=== PATIENT | male | born 1960 | race Caucasian/White ===

== ENCOUNTER 2020-09-25 11:37 | Emergency (ER) | payer MEDICARE, MEDICAID ==
[~2020-09-25] VITALS: Ht 172.7 cm; Wt 70.5 kg
[2020-09-25 11:41] VITALS: BP 157/91; Ht 172.7 cm; Wt 70.5 kg
[2020-09-25] MEDS ORDERED: KLONOPIN1 MG PO (11:43)
[2020-09-25] MEDS ORDERED: PRAVACHOL40 MG PO (11:43)
[2020-09-25] MEDS ORDERED: OMEPRAZOLE20 M1 PO (11:44)
[2020-09-25] MEDS ORDERED: BACLOFEN20 M1 PO (11:44)
[2020-09-25] MEDS ORDERED: COZAAR50 MG PO ×2 (11:44→11:46)
[2020-09-25] MEDS ORDERED: NORTRIPTYLINE H50 MG PO (11:45)
[2020-09-25] MEDS ORDERED: TENORMIN50 MG PO (11:45)
[2020-09-25] MEDS ORDERED: VIAGRA100 MG PO (11:45)
[2020-09-25] MEDS ORDERED: INDOCIN25 MG PO (11:46)
[2020-09-25] MEDS ORDERED: TENORMIN100 MG PO (11:47)
[2020-09-25 12:54] LABS: BASOPHILS 0.6 % (0-2); EOSINOPHILS 0.4 % (0-7); HEMATOCRIT 41.2 % (42.0-54.0); HEMOGLOBIN 13.4 g/dL (13.5-17.5); IMMATURE GRANULOCYTES 0.1 % (0-5); LYMPHOCYTE ABS# 1.06 10x3/uL (1.32-3.57); LYMPHOCYTES 15.1 % (15-50); MCH 28.7 pg (26.0-34.0); MCHC 32.5 g/dL (31.0-37.0); MCV 88.2 fL (80.0-100.0); MEAN PLATELET VOLUME 8.8 fL (7.4-10.4); MONOCYTES 6.1 % (2-11); NEUTROPHIL ABS# 5.43 10x3/uL (1.78-5.38); NEUTROPHILS 77.7 % (40-80); PLATELET COUNT 248 10x3/uL (130-400); RBC 4.67 10x6/uL (4.20-6.10); RDW 16.3 % (11.5-14.5)
[2020-09-25 13:02] LABS: CALC OSMOLALITY 278 mosm/kg (275-300); CALCIUM 8.9 mg/dL (8.5-10.1); CARBON DIOXIDE 22.9 mmol/L (21.0-32.0); CHLORIDE - SERUM 105 mmol/L (98-107); GLUCOSE 80 mg/dL (74-106); POTASSIUM - SERUM 3.7 mmol/L (3.5-5.1); SODIUM 140 mmol/L (136-145); UREA NITROGEN 15 mg/dL (7-18); eGFR NON AFRICAN AMERICAN 81 mL/min (90-120)
[2020-09-25 13:03] LABS: APTT 33.5 SECONDS (22.8-39.4); INR 1.07 (0.85-1.17); PROTIME 12.8 SECONDS (11.6-15.0)
[2020-09-25 13:17] LABS: ALBUMIN 3.1 g/dL (3.4-5.0); ALKALINE PHOSPHATASE 97 U/L (30-120); ALT (SGPT) 40 U/L (10-68); BILIRUBIN - TOTAL 0.41 mg/dL (0.2-1.3); CKMB 15.2 U/L (0.0-3.6); CREATINE KINASE 390 UL (21-232); MAGNESIUM - SERUM 1.7 mg/dL (1.8-2.4); PROTEIN - SERUM 6.3 g/dL (6.4-8.2)
[2020-09-25 13:18] LABS: TROPONIN-I < 0.017 ng/mL (0.000-0.060)
[2020-09-25 13:43] LABS: BILIRUBIN 1+ (NEGATIVE); KETONE LARGE mg/dL (NEGATIVE); NITRITE NEGATIVE (NEGATIVE); UDS - AMPHET NEGATIVE QUAL (NEGATIVE); UDS - BARB NEGATIVE QUAL (NEGATIVE); UDS - BENZO POSITIVE QUAL (NEGATIVE); UDS - COCAINE NEGATIVE QUAL (NEGATIVE); UDS - OPIATE NEGATIVE QUAL (NEGATIVE); UDS - PCP NEGATIVE QUAL (NEGATIVE); UDS - THC POSITIVE QUAL (NEGATIVE); UROBILINOGEN NORMAL mg/dL (< 2)
[2020-09-25 13:44] LABS: SQUAMOUS EPITHELIAL 0-5 HPF (0-4); WHITE CELLS - URINE 0-5 HPF (0-1)
[2020-09-25] MEDS ORDERED: CYCLOBENZAPRINE10 MG PO (14:19)
[2020-09-25] MEDS ORDERED: IBUPROFEN800 MG PO (14:19)
[2020-09-25] MEDS ORDERED: ACETAMINOPHEN500 M1 PO (14:19)
== END 2020-09-25 19:59 | disposition home or self-care (01) ==
LOC: D.ER 11:37
PROVIDERS: Family Medicine
DX: M54.9 Dorsalgia, unspecified (principal); R62.7 Adult failure to thrive; R53.83 Other fatigue; Z59.0 Homelessness; M62.82 Rhabdomyolysis; R53.1 Weakness; T73.0XXA Starvation, initial encounter; R53.81 Other malaise; I10 Essential (primary) hypertension; K21.9 Gastro-esophageal reflux disease without esophagitis; Z72.0 Tobacco use

== ENCOUNTER 2020-12-04 13:06 | Inpatient (IN) | payer MEDICARE ==
[2020-12-04] VITALS (7 sets, daily range): BP systolic 114–136; BP diastolic 56–76
[~2020-12-04] VITALS: Ht 172.7 cm; Wt 69.4 kg
[~2020-12-04 13:06] MED LIST: ACETAMINOPHEN500 M1 PO; BACLOFEN20 M1 PO; COZAAR50 MG PO; CYCLOBENZAPRINE10 MG PO; IBUPROFEN800 MG PO; INDOCIN25 MG PO; KLONOPIN1 MG PO; NORTRIPTYLINE H50 MG PO; OMEPRAZOLE20 M1 PO; PRAVACHOL40 MG PO; TENORMIN100 MG PO; TENORMIN50 MG PO; VIAGRA100 MG PO
--- NOTE | 2020-12-04 13:51 | NUR ---
URINE COLLECTED AND TAKEN TO LAB.
--- NOTE | 2020-12-04 13:52 | NUR ---
BLOOD DRAWN AND TAKEN TO LAB.
[2020-12-04 13:57] LABS: EOSINOPHILS 1.4 % (0-7); HEMATOCRIT 35.5 % (42.0-54.0); LYMPHOCYTES 15.5 % (15-50); MCH 30.7 pg (26.0-34.0); MCHC 33.7 g/dL (31.0-37.0); MCV 91.2 fL (80.0-100.0); MEAN PLATELET VOLUME 6.1 fL (7.4-10.4); MONOCYTES 8.9 % (2-11); NEUTROPHILS 73.2 % (40-80); PLATELET COUNT 282 10x3/uL (130-400); RDW 14.5 % (11.5-14.5); WBC 7.6 10x3/uL (4.8-10.8)
[2020-12-04 14:04] LABS: BILIRUBIN NEGATIVE (NEGATIVE); KETONE NEGATIVE mg/dL (< 1+); NITRITE NEGATIVE (NEGATIVE); PH 5.5 (5.0-8.0); UROBILINOGEN NORMAL mg/dL (< 2)
[2020-12-04 14:10] LABS: ANION GAP 9.2 mmol/L (8-16); CALCIUM 8.6 mg/dL (8.5-10.1); CARBON DIOXIDE 31.8 mmol/L (21.0-32.0); CREATININE - SERUM 1.4 mg/dL (0.6-1.3)
[2020-12-04 14:30] LABS: ALBUMIN 3.6 g/dL (3.4-5.0); BILIRUBIN - TOTAL 0.4 mg/dL (0.2-1.3); PROTEIN - SERUM 6.8 g/dL (6.4-8.2)
[2020-12-04 14:40] LABS: TROPONIN-I 0.158 ng/mL (0.000-0.060)
[2020-12-04 15:20] LABS: UDS - AMPHET NEGATIVE QUAL (NEGATIVE); UDS - BARB NEGATIVE QUAL (NEGATIVE); UDS - BENZO NEGATIVE QUAL (NEGATIVE); UDS - COCAINE NEGATIVE QUAL (NEGATIVE); UDS - OPIATE NEGATIVE QUAL (NEGATIVE); UDS - PCP NEGATIVE QUAL (NEGATIVE); UDS - THC POSITIVE QUAL (NEGATIVE)
[2020-12-04] MEDS ORDERED: PRAVASTATIN SOD10 MG PO (17:48)
[2020-12-04] MEDS ORDERED: PROCARDIA XL60 MG PO (17:49)
[2020-12-04] MEDS ORDERED: COREG25 MG PO (17:49)
[2020-12-04] MEDS ORDERED: VOLTAREN75 MG PO (17:50)
[2020-12-04] MEDS ORDERED: BACLOFEN20 M1 PO (17:50)
[2020-12-04] MEDS ORDERED: CYMBALTA60 MG PO (17:51)
[2020-12-04] MEDS ORDERED: NEURONTIN 400400 MG PO (17:51)
[2020-12-04] MEDS ORDERED: OMEPRAZOLE20 M1 PO (17:52)
[2020-12-04] MEDS ORDERED: SENNA LAXATIVE8.6 MG PO (17:54)
[2020-12-04] MEDS ORDERED: COZAAR25 MG PO (17:56)
[2020-12-04] MEDS ORDERED: TRAZODONE HCL100 MG PO (17:59)
--- NOTE | 2020-12-04 18:35 | NUR ---
AWAKE AND EATING SUPPER. PATIENT IS MORE ALERT AT THIS TIME. C/O CHRONIC PAIN BACK PAIN. STATES CURRENT MEDICATION REGIMEN DOES NOT WORK. ENCOURAGED TO SPEAK WITH [facility] ABOUT ALL SYMPTOMS.
[2020-12-04 22:03] LABS: CKMB 3.1 U/L (0.0-3.6); CREATINE KINASE 110 UL (21-232)
[2020-12-04 22:13] LABS: TROPONIN-I 0.189 ng/mL (0.000-0.060)
--- NOTE | 2020-12-04 23:55 | NUR ---
RECEIVED PT TO FLOOR FROM ER VIA STRETCHER. PT C/O WEAKNESS; BACK PAIN; KIDNEY PAIN; CONSTIPATION AND CLAIMS HE WILL PROBABLY BE PARALYZED SOME DAY. TELEMETRY RUNNING SR. GAVE PT A WARM PRUNE JUICE W/SPRITE AND COFFEE. PLACED SCD'S ON PT. VITAL SIGNS STABLE. WILL CONTINUE TO MONITOR.
[2020-12-05] VITALS (7 sets, daily range): BP systolic 116–160; BP diastolic 71–101; Ht 172.7 cm; Wt 69.4 kg
[2020-12-05 03:39] LABS: CKMB 2.7 U/L (0.0-3.6); CREATINE KINASE 91 UL (21-232)
[2020-12-05 03:40] LABS: TROPONIN-I 0.196 ng/mL (0.000-0.060)
[2020-12-05 06:45] LABS: EOSINOPHILS 1.8 % (0-7); HEMATOCRIT 35.6 % (42.0-54.0); LYMPHOCYTES 28.4 % (15-50); MCH 31.2 pg (26.0-34.0); MCHC 33.8 g/dL (31.0-37.0); MCV 92.4 fL (80.0-100.0); MEAN PLATELET VOLUME 6.4 fL (7.4-10.4); MONOCYTES 9.6 % (2-11); NEUTROPHILS 59.2 % (40-80); PLATELET COUNT 300 10x3/uL (130-400); RBC 3.85 10x6/uL (4.20-6.10); RDW 14.6 % (11.5-14.5); WBC 5.9 10x3/uL (4.8-10.8)
[2020-12-05 07:18] LABS: ALBUMIN 3.1 g/dL (3.4-5.0); ALKALINE PHOSPHATASE 80 U/L (30-120); ALT (SGPT) 23 U/L (10-68); BILIRUBIN - TOTAL 0.53 mg/dL (0.2-1.3); CALCIUM 8.5 mg/dL (8.5-10.1); CARBON DIOXIDE 30.4 mmol/L (21.0-32.0); CHLORIDE - SERUM 106 mmol/L (98-107); GLUCOSE 89 mg/dL (74-106); SODIUM 143 mmol/L (136-145)
[2020-12-05 07:21] LABS: CALC OSMOLALITY 285 mosm/kg (275-300); CREATININE - SERUM 0.9 mg/dL (0.6-1.3); POTASSIUM - SERUM 3.5 mmol/L (3.5-5.1); UREA NITROGEN 18 mg/dL (7-18); eGFR NON AFRICAN AMERICAN > 90 mL/min (90-120)
[2020-12-05 07:33] LABS: CKMB 2.5 U/L (0.0-3.6); CREATINE KINASE 90 UL (21-232)
[2020-12-05 07:47] LABS: TROPONIN-I 0.157 ng/mL (0.000-0.060)
--- NOTE | 2020-12-05 11:23 | NUR ---
PHYSICAL THERAPY ATTEMPTED TO WORK WITH PT, GOT HIM TO SIT UP TO THE SIDE OF THE BED, WHILE ATTEMPTING TO GET HIM TO STAND UP PT STATED HIS EXTREMITIES STARTED TO FEEL NUMB AND TINGLING, STATES WHEN HE STANDS IT SENDS ELECTRICAL PAIN DOWN HIS LEGS, PT REPORTS HE HAD BACK SURGERY IN EARLY 2019 AND THEN HAD A REVISION IN MAY OF 2020, PT COULD NOT REMEMBER DOCTORS NAME BUT STATES HE HAD IT DONE AT [facility], FURTHER DISCUSSION WITH PHYSICAL THERAPY PT WOULD BENEFIT FROM CONSULT FOR HIS SPINE AND REHAB FOR STRENGTHENING
--- NOTE | 2020-12-05 19:28 | NUR ---
PATIENT RESTING IN BED WITH NO S/S OF DISTRESS AND DENIES NEEDS AT THIS TIME. BED IN LOWEST POSITION AND CALL LIGHT IN REACH. ENCOURAGED PATIENT TO CALL WITH NEEDS.
--- NOTE | 2020-12-05 21:45 | NUR ---
DUNCAN STACY APRN IN REGARDS TO BP 160/100
--- NOTE | 2020-12-05 22:08 | NUR ---
ADMINISTERED MEDS PER ORDERS. PATIENT RAY WELL. ENCOURAGED TO CALL WITH NEEDS.
[2020-12-06] VITALS: BP 129/61
[2020-12-06 04:00] VITALS: BP 139/91
[2020-12-06 05:43] LABS: BASOPHILS 0.9 % (0-2); EOSINOPHILS 1.9 % (0-7); HEMATOCRIT 37.4 % (42.0-54.0); HEMOGLOBIN 12.4 g/dL (13.5-17.5); LYMPHOCYTES 26.4 % (15-50); MCH 30.5 pg (26.0-34.0); MCHC 33.2 g/dL (31.0-37.0); MCV 91.7 fL (80.0-100.0); MEAN PLATELET VOLUME 6.2 fL (7.4-10.4); MONOCYTES 8.9 % (2-11); NEUTROPHILS 61.9 % (40-80); PLATELET COUNT 315 10x3/uL (130-400); RBC 4.08 10x6/uL (4.20-6.10); RDW 14.3 % (11.5-14.5); WBC 5.5 10x3/uL (4.8-10.8)
[2020-12-06 06:19] LABS: ALBUMIN 2.9 g/dL (3.4-5.0); ALKALINE PHOSPHATASE 92 U/L (30-120); ALT (SGPT) 20 U/L (10-68); BILIRUBIN - TOTAL 0.45 mg/dL (0.2-1.3); CALC OSMOLALITY 280 mosm/kg (275-300); CALCIUM 8.4 mg/dL (8.5-10.1); CARBON DIOXIDE 28.7 mmol/L (21.0-32.0); CHLORIDE - SERUM 107 mmol/L (98-107); CREATININE - SERUM 0.8 mg/dL (0.6-1.3); GLUCOSE 89 mg/dL (74-106); POTASSIUM - SERUM 3.3 mmol/L (3.5-5.1); PROTEIN - SERUM 6.2 g/dL (6.4-8.2); SODIUM 142 mmol/L (136-145); eGFR NON AFRICAN AMERICAN > 90 mL/min (90-120)
[2020-12-06 06:33] LABS: UREA NITROGEN 9 mg/dL (7-18)
[2020-12-06 08:43] VITALS: BP 138/90
[2020-12-06 14:22] VITALS: BP 139/99
[2020-12-06 17:23] VITALS: BP 161/97
--- NOTE | 2020-12-06 18:00 | NUR ---
I have reviewed this patient and I concur with the Shift Assessment completed by the Licensed Practical Nurse today this shift.
--- NOTE | 2020-12-06 19:34 | NUR ---
PATIENT RESTING IN BED WITH NO S/S OF DISTRESS. BED IN LOWEST POSITION AND CALL LIGHT IN REACH. ENCOURAGED PATIENT TO CALL WITH NEEDS.
[2020-12-06 20:00] VITALS: BP 126/77
--- NOTE | 2020-12-06 22:10 | NUR ---
ADMINISTERED MEDS PER ORDERS. PATIENT RAY WELL. ENCOURAGED PATIENT TO CALL WITH NEEDS.
[2020-12-07] VITALS: BP 120/77
[2020-12-07 04:00] VITALS: BP 104/77
[2020-12-07 05:35] LABS: BASOPHILS 0.6 % (0-2); EOSINOPHILS 1.4 % (0-7); HEMATOCRIT 38.1 % (42.0-54.0); LYMPHOCYTES 15.3 % (15-50); MCH 31.2 pg (26.0-34.0); MCV 91.9 fL (80.0-100.0); MEAN PLATELET VOLUME 6.4 fL (7.4-10.4); MONOCYTES 10.1 % (2-11); NEUTROPHILS 72.6 % (40-80); PLATELET COUNT 352 10x3/uL (130-400); RBC 4.15 10x6/uL (4.20-6.10); RDW 14.6 % (11.5-14.5)
[2020-12-07 05:59] LABS: WBC 10.1 10x3/uL (4.8-10.8)
[2020-12-07 06:03] LABS: ALBUMIN 3.1 g/dL (3.4-5.0); ALKALINE PHOSPHATASE 100 U/L (30-120); ALT (SGPT) 18 U/L (10-68); BILIRUBIN - TOTAL 0.36 mg/dL (0.2-1.3); CALC OSMOLALITY 280 mosm/kg (275-300); CALCIUM 8.6 mg/dL (8.5-10.1); CARBON DIOXIDE 27.7 mmol/L (21.0-32.0); CHLORIDE - SERUM 107 mmol/L (98-107); GLUCOSE 88 mg/dL (74-106); PROTEIN - SERUM 6.5 g/dL (6.4-8.2); SODIUM 142 mmol/L (136-145); UREA NITROGEN 11 mg/dL (7-18); eGFR NON AFRICAN AMERICAN 81 mL/min (90-120)
[2020-12-07 09:02] VITALS: BP 111/80
[2020-12-07 13:22] VITALS: BP 112/85; BP 127/97
--- NOTE | 2020-12-07 17:00 | NUR ---
PATIENT IVF STOPPED PER PATIENT REQUEST. STATED THE STATED HE WOULD GIVE HIM ONE MORE NIGHT TO STAY, NOT THAT HE NEEDED TO. PATIENT ALSO REMOVED TELEMETRY. REFUSES TO PUT BACK ON OR RESTART IVF. IV X 2 SL AND INTACT. EXPLAINED I CAN NOT TAKE THEM OUT INCASE OF AN EMERGENCY WHILE HE IS HERE. VERBALIZED UNDERSTANDING. CALLL IGHT WITHIN REACH.
[2020-12-07 18:04] VITALS: BP 143/62
--- NOTE | 2020-12-07 19:45 | NUR ---
RECEIVED BEDSIDE REPORT. PT LAYING IN BED, A&O X4. PIV TO LEFT AC, PATENT AND SL, NO REDNESS OR SWELLING. PT ABLE TO AMBULATE AD DARNELL. EDUCATED PT ON CL AND NEEDS, VERBALIZES UNDERSTANDING. BED LOW, CL IN REACH.
[2020-12-07 19:55] VITALS: BP 121/84
[2020-12-08 00:16] VITALS: BP 124/80
[2020-12-08 05:37] VITALS: BP 101/74
[2020-12-08 08:31] LABS: BASOPHILS 0.4 % (0-2); HEMATOCRIT 42.3 % (42.0-54.0); HEMOGLOBIN 13.9 g/dL (13.5-17.5); LYMPHOCYTES 10.4 % (15-50); MCH 31.1 pg (26.0-34.0); MCHC 32.8 g/dL (31.0-37.0); MEAN PLATELET VOLUME 6.2 fL (7.4-10.4); MONOCYTES 9.2 % (2-11); PLATELET COUNT 343 10x3/uL (130-400); RBC 4.46 10x6/uL (4.20-6.10); RDW 14.8 % (11.5-14.5); WBC 9.9 10x3/uL (4.8-10.8)
[2020-12-08 08:46] LABS: ALBUMIN 3.6 g/dL (3.4-5.0); ALKALINE PHOSPHATASE 119 U/L (30-120); ALT (SGPT) 22 U/L (10-68); BILIRUBIN - TOTAL 0.59 mg/dL (0.2-1.3); CALC OSMOLALITY 275 mosm/kg (275-300); CALCIUM 8.9 mg/dL (8.5-10.1); CARBON DIOXIDE 24.3 mmol/L (21.0-32.0); CHLORIDE - SERUM 102 mmol/L (98-107); GLUCOSE 99 mg/dL (74-106); POTASSIUM - SERUM 4.4 mmol/L (3.5-5.1); SODIUM 138 mmol/L (136-145); UREA NITROGEN 12 mg/dL (7-18); eGFR NON AFRICAN AMERICAN 81 mL/min (90-120)
[2020-12-08 08:57] LABS: MCV 94.9 fL (80.0-100.0)
[2020-12-08 09:38] VITALS: BP 113/70
--- NOTE | 2020-12-08 09:50 | NUR ---
PATIENT UP IN SHOWER AT THIS TIME. IV INTACT. CALL LIGHT WITHIN REACH.
--- NOTE | 2020-12-08 12:00 | NUR ---
PATIENT SITTING UP IN BED EATING WITH NO PROBLEMS OR COMPLAINTS. IV INTACT. CALL LIGHT WITHIN REACH.
[2020-12-08 13:27] VITALS: BP 132/90
[2020-12-08] MEDS ORDERED: COZAAR25 MG PO (14:12)
[2020-12-08] MEDS ORDERED: ULTRAM50 MG PO (14:15)
--- NOTE | 2020-12-08 14:37 | NUR ---
PATIENT IN BED WITH IV INTACT. GOING TO BE DC'D. PATIENT STATED HE DIDNT WANT TO TAKE BACLOFEN YET, HE WAS GOING TO WAIT UNTIL HE RECIEVED HIS MEDS FROM PHARMACY AND TAKE HIS OWN WHEN HE GETS IN THE CAB BC HE SAID HE HAS A WAYS TO GO AND DOESNT WANT TO TAKE IT TOO SOON. WAITING FOR DC PAPERS AT THIS TIME.
--- NOTE | 2020-12-08 15:15 | NUR ---
PATIENT DECIDED TO GO AHEAD AND TAKE BACLOFEN DR. GAYTAN ORDERED NOW. STATED HE WAS HAVING SPASMS AND DIDNT WANT TO WAIT. IV REMOVED WITH CATH TIP INTACT. WAITING ON DC INSTRUCTIONS.
--- NOTE | 2020-12-08 17:05 | NUR ---
PATIENT RECIEVED DC INSTRUCTIONS. VERBALIZED UNDERSTANDING. NO QUESTIONS AT THIS TIME. PRESCRIPTION GIVEN TO PATIENT. HOME MEDS GIVEN BACK TO PATIENT FROM PHARMACY. EXPLAINED MEDS CHANGED TO [place] ONCE DAILY INSTEAD OF TWICE A DAY. VERBALIZED UNDERSTANDING. CALL LIGHT WITHIN REACH.
--- NOTE | 2020-12-08 17:30 | NUR ---
PATIENT ESCORTED TO ER TO GET CAB VIA WC WITH PERSONAL BELONGINGS BY MACHINE PECAN PICKER.
== END 2020-12-08 17:30 | disposition home or self-care (01) | DRG 280 ==
LOC: D.ER 13:06 → D.EDHOLD 14:20 → D.MS 14:20
PROVIDERS: Family Medicine; ADMIT Family Medicine; ATTEND Family Medicine
DX: I95.9 Hypotension, unspecified (principal); G93.41 Metabolic encephalopathy; I21.A1 Myocardial infarction type 2; E86.0 Dehydration; R53.83 Other fatigue; Z59.0 Homelessness; I10 Essential (primary) hypertension; Z72.0 Tobacco use; G47.00 Insomnia, unspecified; K21.9 Gastro-esophageal reflux disease without esophagitis; G62.9 Polyneuropathy, unspecified; E78.5 Hyperlipidemia, unspecified; M54.9 Dorsalgia, unspecified; G89.29 Other chronic pain; E87.6 Hypokalemia; D64.9 Anemia, unspecified; I70.0 Atherosclerosis of aorta; I70.8 Atherosclerosis of other arteries; I71.9 Aortic aneurysm of unspecified site, without rupture